=== PATIENT | female | born 1990 | race Caucasian/White ===

== ENCOUNTER 2019-01-06 13:25 | Inpatient (IN) | payer MEDICARE, OTHER ==
[~2019-01-06] VITALS: Ht 162.6 cm; Wt 54.3 kg
[~2019-01-06 13:25] MED LIST: CLON-515 PO; MAGN296S50 PO; ONDA4TAB6 PO; VENL-191 PO
--- NOTE | 2019-01-06 15:50 | NUR ---
Pt. admitted from [facility] via ambulance to [facility] at 15:50, escorted by Luis DING and security, pt. was ambulatory. Pt. admitted for suicidal ideation with thoughts of driving her car off of a beatriz or crashing it. Pt. does not feel safe to return home. Pt.'s skin assessment done, pt.'s valuables checked in a stored in safe. Pt. is on 5150 for danger to self. Pt. calm and cooperative on admission. Pt. has previous hx of anxiety, depression, and panic d/o.
[2019-01-06] MEDS ORDERED: LORazepam 1 MG tablet PO PRN (16:05)
[2019-01-06] MEDS ORDERED: mag hydrox/Alum hydrox/simeth 30ml oral suspension PO PRN (16:05)
[2019-01-06] MEDS ORDERED: magnesium hydroxide 30ml (MOM) UD suspension PO PRN (16:05)
[2019-01-06] MEDS ORDERED: acetaminophen 325mg tablet PO PRN ×2 (16:05)
[2019-01-06] MEDS ORDERED: loperamide 2mg capsule PO PRN (16:05)
[2019-01-06] MEDS ORDERED: tuberculin, purif. prot. deriv. 5 units/0.1ml ID ONE (16:05)
[2019-01-06] MEDS ORDERED: IBUP-1984 PO (16:27)
[2019-01-06] MEDS ORDERED: SERT50TA PO (16:27)
[2019-01-06 16:29] VITALS: BP 105/71
[2019-01-06 19:00] VITALS: BP 118/77
[2019-01-06] MEDS: ibuprofen tablet 400 MG TABLET PO SCH (20:00)
[2019-01-06] MEDS: sertraline 50mg tablet PO SCH (20:42)
[2019-01-06] MEDS: hydrOXYzine 25 MG tablet PO PRN (20:43)
[2019-01-07] MEDS: ibuprofen tablet 400 MG TABLET PO SCH (02:00)
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
[2019-01-07 08:00] VITALS: BP 110/76
[2019-01-07] MEDS: ibuprofen 200mg tablet PO PRN (09:03)
[2019-01-07 10:54] LABS: CHOL/HDL RATIO 2.7 (0.00-4.99); CHOLESTEROL 145 MG/DL (0-200); HDL CHOLESTEROL 54 MG/DL (35-60); LDL CHOLESTEROL 81 MG/DL (50-100); TRIGLYCERIDES 68 MG/DL (20-135)
--- NOTE | 2019-01-07 10:54 | NUR ---
Malnutrition consult: Per H&P pt reports 20 lb wt loss over a 2 month period d/t anxiety. Per documented wt hx patient's weight is stable with UBW. Pt currently on regular diet documented with 50-75% PO intake at dinner last night however 100% at breakfast this morning meeting nutrient needs. No decrease in muscle strength or edema. Pt currently does not meet criteria for malnutrition. Will continue to follow. Addendum: 01/07/19 at [address] Amended: Links added.
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
[2019-01-07 20:00] VITALS: BP 113/69
[2019-01-07] MEDS: hydrOXYzine 25 MG tablet PO PRN (20:58)
[2019-01-07] MEDS: sertraline 50mg tablet PO SCH (20:58)
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
[2019-01-08 08:17] VITALS: BP 126/71
[2019-01-08] MEDS: hydrOXYzine 25 MG tablet PO PRN (16:38)
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
[2019-01-08 19:57] VITALS: BP 112/71
[2019-01-08] MEDS: sertraline 50mg tablet PO SCH (21:09)
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
[2019-01-09 07:30] VITALS: BP 110/84
[2019-01-09] MEDS: ibuprofen 200mg tablet PO PRN (08:42)
[2019-01-09] MEDS ORDERED: sertraline 50mg tablet PO ONE (08:55)
[2019-01-09] MEDS ORDERED: busPIRone 15mg tablet PO ONE (09:10)
[2019-01-09] MEDS ORDERED: busPIRone 15mg tablet PO SCH (13:00)
[2019-01-09] MEDS ORDERED: BUS15T PO (16:19)
[2019-01-09] MEDS ORDERED: HYDR-3686 PO (16:19)
[2019-01-09] MEDS ORDERED: SERT-153 PO (16:19)
--- NOTE | 2019-01-09 17:00 | NUR ---
@1700 Pt. discharged to home via car picked up by mother. Pt. discharged with all valuables. Pt. Calm and cooperative on discharge showing no signs of psychological or emotional stress. Pt. denies SI/HI A/V H. Pt. informed of f/u appointments and verbalizes understanding. Pt. informed of all home medications and given scripts and verbalizes understanding.
[2019-01-10] MEDS ORDERED: sertraline 50mg tablet PO SCH (08:00)
== END 2019-01-09 17:00 | disposition home or self-care (01) | DRG 885 ==
LOC: ADULT MH 13:25
PROVIDERS: ADMIT Psychiatry & Neurology Psychiatry; ATTEND Psychiatry & Neurology Psychiatry
DX: F33.2 Major depressive disorder, recurrent severe without psychotic features (principal); R45.851 Suicidal ideations; F41.1 Generalized anxiety disorder; F43.10 Post-traumatic stress disorder, unspecified; Z80.3 Family history of malignant neoplasm of breast; Z79.899 Other long term (current) drug therapy
CPT/HCPCS: 36415; 80061; 83036; 87081; 99285; Z7610

== ENCOUNTER 2022-08-30 15:59 | Emergency (ER) | payer OTHER ==
[~2022-08-30] VITALS: Ht 162.6 cm; Wt 50.0 kg
[~2022-08-30 15:59] MED LIST changes: +BUS15T PO; -CLON-515 PO; +HYDR-3686 PO; +IBUP-1984 PO; -MAGN296S50 PO; -ONDA4TAB6 PO; +SERT-153 PO; -VENL-191 PO
[2022-08-30] MEDS ORDERED: normal saline 1000ml 1,000 ML IV ONE ×2 (16:15→17:05)
[2022-08-30 16:27] LABS: CLARITY,URINE CLOUDY (Clear); COLOR,URINE YELLOW (Yellow); GLUCOSE, URINE NEGATIVE (Neg); KETONES,URINE >=80 mg/dl (Neg); LEUKOCYTE ESTERASE ,URINE NEGATIVE (Neg); NITRITES, URINE NEGATIVE (Neg); OCCULT BLOOD,URINE LARGE (Neg); PROTEIN,URINE 30 mg/dl (Neg); UROBILINOGEN,URINE 0.2 E.U/dL (0.2-1.0)
[2022-08-30 16:28] LABS: URINE HCG NEGATIVE (NEG)
[2022-08-30 16:29] LABS: BASOPHILS % (AUTO) 0.3 % (0-1); EOSINOPHILS # (AUTO) 0.1 X10'3 (0-0.9); EOSINOPHILS % (AUTO) 0.7 % (0-6); HEMATOCRIT 39.7 % (35.0-45.0); HEMOGLOBIN 13.1 g/dl (12.0-16.0); LYMPHOCYTES # (AUTO) 0.3 X10'3 (1.1-4.8); LYMPHOCYTES % (AUTO) 4.3 % (21-51); MEAN CORPUSCULAR HEMOGLOBIN 29.5 PG (27.0-31.0); MEAN CORPUSCULAR HGB CONC 33.1 g/dL (33.0-36.5); MEAN CORPUSCULAR VOLUME 89.2 FL (78-98); MEAN PLATELET VOLUME 7.2 FL (7.4-10.4); MONOCYTES # (AUTO) 0.5 X10'3 (0-0.9); MONOCYTES % (AUTO) 6.4 % (2-12); NEUTROPHILS % (AUTO) 88.3 % (42-75); PLATELET COUNT 189 X10'3 (140-440); RED BLOOD COUNT 4.45 X10'6 (4.20-5.60); RED CELL DISTRIBUTION WIDTH 13.3 % (11.5-14.5); WHITE BLOOD COUNT 7.9 X10'3 (4.5-11.0)
[2022-08-30 16:30] LABS: UA COLLECTION TYPE CLN CATCH MIDSTREAM
[2022-08-30 16:39] LABS: MUCUS STRANDS MANY /LPF (Neg); SQUAMOUS EPITHELIAL CELL,UR MANY /LPF (FEW)
[2022-08-30 16:40] LABS: BACTERIA,URINE 2+ /HPF (Neg); WBC,URINE 0-4 /HPF (0-4)
[2022-08-30 16:42] LABS: ALANINE AMINOTRANSFERASE 41 U/L (12-78); ALBUMIN 3.9 G/DL (3.4-5.0); ALBUMIN/GLOBULIN RATIO 1.1 (1.1-1.5); ALKALINE PHOSPHATASE 89 IU/L (46-116); ANION GAP 12 (8-16); ASPARTATE AMINO TRANSFERASE 27 U/L (10-37); BILIRUBIN,TOTAL 0.9 MG/DL (0.1-1.0); BLOOD UREA NITROGEN 13 MG/DL (7-18); BUN/CREATININE RATIO 18.1 (10.0-20.0); CALCIUM 8.9 MG/DL (8.5-10.1); CHLORIDE 100 MMOL/L (99-107); CREATININE 0.72 MG/DL (0.40-0.90); GLUCOSE 104 MG/DL (70-104); MAGNESIUM 1.9 MG/DL (1.5-2.4); POTASSIUM 3.3 MMOL/L (3.5-5.1); SODIUM 138 MMOL/L (135-145); TOTAL CARBON DIOXIDE 25.6 MMOL/L (24-32); TOTAL PROTEIN 7.5 G/DL (6.4-8.2); eGFR > 90 ML/MIN
[2022-08-30] MEDS ORDERED: POTASSIUM BICARB 20meq eff tab 20 MEQ TABLET.EFF PO STA (17:03)
[2022-08-30] MEDS ORDERED: nitrofuran monohydrate/nitrofuran macrocrysal 100 MG (MacroBID) capsule PO ONE (17:05)
[2022-08-30] MEDS ORDERED: ONDA4TAB12 PO (17:07)
[2022-08-30] MEDS ORDERED: NITR100C6 PO (17:07)
[2022-08-30 17:10] LABS: PLATELET ESTIMATE NORMAL; TOTAL CELLS COUNTED 100
[2022-08-30 17:12] LABS: ELLIPTOCYTES 1+; SCHISTOCYTES FEW
[2022-08-30 18:17] VITALS: BP 117/79
== END 2022-08-30 18:19 | disposition home or self-care (01) ==
LOC: ER 16:00
DX: E86.0 Dehydration (principal); N39.0 Urinary tract infection, site not specified; E87.6 Hypokalemia; G43.909 Migraine, unspecified, not intractable, without status migrainosus
CPT/HCPCS: 36415; 80053; 81001; 81025; 83735; 85007; 85025; 87088; 99283; J7030